=== PATIENT | female | born 1980 | race Caucasian/White ===

== ENCOUNTER 2019-10-10 00:52 | Inpatient (IN) | payer OTHER ==
[~2019-10-10] VITALS: Ht 162.6 cm; Wt 96.7 kg
[~2019-10-10 00:52] MED LIST: CODACE30 PO; CRUTCH USE; Carafate1 GM/10 ML PO; HYDACE5 PO; IBUP800 PO; META800 PO; NAPR500 PO; Protonix40 MG PO; RANI150 PO; Zofran Odt8 MG PO
[2019-10-10 01:26] LABS: BASOPHILS ABSOLUTE AUTO 0.02 K/mm3 (0.00-0.23); BASOPHILS PERCENT AUTO 0 % (0-2); EOSINOPHILS PERCENT AUTO 1 % (0-6); Hematocrit 37.2 % (33.0-51.0); Hemoglobin 12.5 g/dL (11.5-16.0); IMMATURE GRAN ABSOLUTE AUTO 0.03 K/mm3 (0.00-0.10); IMMATURE GRAN PERCENT AUTO 0 % (0-1); LYMPHOCYTES ABSOLUTE AUTO 1.16 K/mm3 (0.84-5.20); LYMPHOCYTES PERCENT AUTO 16 % (21-46); MONOCYTES ABSOLUTE AUTO 0.64 K/mm3 (0.16-1.47); MONOCYTES PERCENT AUTO 9 % (4-13); Mean Corpuscular HGB 31.6 pg (26.0-34.0); Mean Corpuscular HGB Conc 33.6 g/dL (31.5-36.5); Mean Corpuscular Volume 94 fL (80-100); Mean Platelet Volume 10.6 fL (9.1-12.4); NEUTROPHILS ABSOLUTE AUTO 5.51 K/mm3 (1.96-9.15); NEUTROPHILS PERCENT AUTO 74 % (41-73); Platelet Count 149 K/mm3 (150-400); RDW Standard Deviation 45.3 fL (35.1-46.3); Red Blood Cell Count 3.95 M/mm3 (3.80-5.20); White Blood Cell Count 7.46 K/mm3 (4.00-11.30)
[2019-10-10 01:38] LABS: Alanine Aminotransfer (ALT/SGP 96 U/L (12-78); Albumin, Blood 2.4 g/dL (3.4-5.0); Albumin/Globulin Ratio 0.5 (0.8-1.8); Alk Phos 272 U/L (50-136); Anion Gap 7 mmol/L (6-16); Aspartate Aminotrans (AST/SGOT 97 U/L (12-37); Bilirubin, Total 1.8 mg/dL (0.1-1.0); Blood Urea Nitrogen 8 mg/dL (8-24); Bun/Creatinine Ratio 11.1 (12.0-20.0); CO2, Blood 26 mmol/L (21-32); Calcium, Blood 8.6 mg/dL (8.5-10.1); Chloride, Blood 104 mmol/L (98-108); Creatinine, Blood 0.72 mg/dL (0.40-1.00); Glomerular Filtration Rate >60 (60-); Glucose, Blood 131 mg/dL (70-99); Potassium, Blood 3.7 mmol/L (3.5-5.5); Sodium, Blood 137 mmol/L (136-145); Total Protein, Blood 7.4 g/dL (6.4-8.2)
[2019-10-10 03:02] LABS: Source, Urine Clean Catch
[2019-10-10 03:04] LABS: Appearance, Urine Clear (Clear); Blood, Urine 4+ (Neg); Color, Urine Amber (P-Yellow); Glucose Qualitative, Urine Neg (Neg); Ketones, Urine 1+ (Neg); Leukocyte Esterase, Urine 2+ (Neg); Nitrite, Urine Neg (Neg); Protein, Urine 2+ (Neg); Specific Gravity, Urine 1.015 (1.003-1.022); Urobilinogen, Urine 3+ (Normal)
[2019-10-10 03:08] LABS: Bilirubin, Urine 2+ (Neg)
[2019-10-10 03:10] LABS: Bacteria Mod /hpf; Red Blood Cells, Urine 0-2 /hpf (0-2); Squamous Epithelial Cells Few /hpf (Few)
--- NOTE | 2019-10-10 18:29 | NUR ---
SHE IS SLEEPING NOW AFTER A DOSE OF PO VALIUM, BUT HAS BEEN VERY DIFFICULT TO ASSESS TODAY. SHE HAS C/O SEVERE PAIN IN HER L FLANK ALL DAY AND SOME PAIN DOWN HER L LEG. I HAVE STAYED IN TOUCH WITH T/O THE DAY. I HAVE GIVEN HER TORADOL, TRAMADOL, TYLENOL, LIDOCAINE PATCH AND VALIUM IN THAT ORDER TODAY. SHE ACTUALLY HAD 2 DOSES OF TORADOL AND TRAMADOL. SHE WAS SAYING NOTHING HELPED, EVEN THE DILAUDID IN THE E.R. SHE SAYS WAS NOT EFFECTIVE. WHEN I'M WITH HER, SHE CAN BE WRITHING, THEN SUDDENLY QUIET AND ALMOST ASLEEP. IVF'S ONGOING UNTIL THIS CURRENT BAG FINISHES. SHE IS EATING ABOUT 50%. HER URINE IS BROWN/FAHEEM. SHE IS ABLE TO WALK AROUND IN THE ROOM. VS HIGH AND FAST WHEN WRITHING IN PAIN.
[2019-10-11 00:03] LABS: Vancomycin, Trough 13.9 ug/mL (5.0-10.0)
[2019-10-11 16:12] LABS: Vancomycin, Trough 14.6 ug/mL (5.0-10.0)
--- NOTE | 2019-10-11 18:39 | NUR ---
SHIFT SUMMARY THE PATIENT SLEPT THE MAJORITY OF THE DAY, WAKING ONLY TO ALLOW STAFF TO PROVIDE NEEDED CARE. SHE HAD A FEVER OF 101.8 THIS AFTERNOON AND WAS GIVEN APAP AND IT WAS EFFECTIVE, BRINGING DOWN HER TEMP TO 98.9. SHE WILL ROUTINELY REQUEST PAIN MEDICATION WELL DIAZEPAM BUT OTHERWISE DOES NOT CALL FOR ANY STAFF ASSIST. PATIENT WAS PLACED ON CONTACT ISO FOR MRSA IN HER BLOOD. PATIENT CONTINUES TO REAT AT THISTIME. WILL CONTINUE TO MONITOR AND PROVIDE CARE NEEDED.
--- NOTE | 2019-10-11 22:48 | NUR ---
PATIENT REPORTED BACK PAIN AND TRAMADOL PO 50 MG GIVEN PER EMAR. PATIENT RESTING. CALL LIGHT IN REACH.
[2019-10-12 04:41] LABS: BASOPHILS ABSOLUTE AUTO 0.04 K/mm3 (0.00-0.23); BASOPHILS PERCENT AUTO 0 % (0-2); EOSINOPHILS PERCENT AUTO 1 % (0-6); Hematocrit 35.3 % (33.0-51.0); Hemoglobin 11.7 g/dL (11.5-16.0); IMMATURE GRAN ABSOLUTE AUTO 0.05 K/mm3 (0.00-0.10); IMMATURE GRAN PERCENT AUTO 1 % (0-1); LYMPHOCYTES ABSOLUTE AUTO 1.99 K/mm3 (0.84-5.20); LYMPHOCYTES PERCENT AUTO 20 % (21-46); MONOCYTES ABSOLUTE AUTO 0.81 K/mm3 (0.16-1.47); MONOCYTES PERCENT AUTO 8 % (4-13); Mean Corpuscular HGB 30.5 pg (26.0-34.0); Mean Corpuscular HGB Conc 33.1 g/dL (31.5-36.5); Mean Corpuscular Volume 92 fL (80-100); Mean Platelet Volume 9.8 fL (9.1-12.4); NEUTROPHILS ABSOLUTE AUTO 6.88 K/mm3 (1.96-9.15); NEUTROPHILS PERCENT AUTO 70 % (41-73); Platelet Count 232 K/mm3 (150-400); RDW Coefficient Variation 13.3 % (11.7-14.2); RDW Standard Deviation 45.1 fL (35.1-46.3); Red Blood Cell Count 3.83 M/mm3 (3.80-5.20); White Blood Cell Count 9.87 K/mm3 (4.00-11.30)
[2019-10-12 04:57] LABS: Anion Gap 8 mmol/L (6-16); Blood Urea Nitrogen 4 mg/dL (8-24); Bun/Creatinine Ratio 6.8 (12.0-20.0); CO2, Blood 23 mmol/L (21-32); Calcium, Blood 8.3 mg/dL (8.5-10.1); Chloride, Blood 107 mmol/L (98-108); Creatinine, Blood 0.59 mg/dL (0.40-1.00); Glomerular Filtration Rate >60 (60-); Glucose, Blood 113 mg/dL (70-99); Potassium, Blood 3.1 mmol/L (3.5-5.5); Sodium, Blood 138 mmol/L (136-145)
--- NOTE | 2019-10-12 04:59 | NUR ---
SHIFT SUMMARY PATIENT HAD NO ACUTE CHANGES OBSERVED. AXOX 3 AND INDEPENDENT IN ROOM. PIV REMAINS INTACT. IV ABX INFUSED. REPORTED L HIP/BACK PAIN AND TRAMADOL 50 MG GIVEN PER EMAR. BP STABLE, LOW GRADE TEMP 99.7, DENIES SOB AND N.V. CONTACT PRECAUTIONS. ABLE TO SLEEP MOST OF THE SHIFT. COOPERATIVE WITH CARE. CALL LIGHT IN REACH. BED IN LOWEST POSITION. WILL CONTINUE TO MONITOR UNTIL DAY SHIFT NURSE ASSUMES CARE.
--- NOTE | 2019-10-12 18:31 | NUR ---
SHIFT SUMMARY PT AWAKE AT START OF SHIFT, TALKING ON CELL PHONE. PT ADMITTED FOR SEPTIC EMBOLISM, REPORTING PAIN IN HER BACK A RESULT. PT IN CONTACT ISO FOR MRSA, RECEIVING IV ABX. 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 DR SEGURA HERE TO SEE PT EARLIER IN THE DAY, EXPLAINED CAUSE AND EFFECT OF BACTERIA IN THE BLOOD AND ESPECIALLY THE RISK OF IV DRUG USE. PT VERBALIZED UNDERSTANDING. PT WILL NEED SEVERAL WEEKS OF OUTPT IV ABX. SS CONSULT ORDERED TO DETERMINE PLAN. DR RING CONSULTED TO I&D BOILS ON HANDS AND WRISTS. DR RING TO TONIGHT; CHRG EDUARD FUENTES ASSISTED. WOUNDS CLEANSED AND WRAPPED WITH KERLEX. PT TOLERATED PROCEDURE WELL. PT DEVELOPED ELEVATED TEMP THIS AFTERNOON; SEE CHART. ICE BAGS PLACED TO AXILLARY AND NECK. TYLENOL GIVEN PER EMAR. HEAT DECREASED AND BLANKETS REMOVED. TEMP SLOWLY DECREASED, SEE CHART, PT WAS COMPLIANT WITH TX. PT REPORTED FEELING BETTER TONIGHT. VISITORS TO PRESENTLY. PT WATCHING TV. CALL LT IN REACH.
--- NOTE | 2019-10-12 23:56 | NUR ---
PATIENT REPORTS LOCKETT AND BACK PAIN. TEMP OF 100.8. TYLENOL AND TRAMADOL GIVEN PER EMAR. WILL REASSESS. CALL LIGHT IN REACH.
--- NOTE | 2019-10-13 00:46 | NUR ---
TEMP 98.2 DOWN FROM 100.8. WILL CONTINUE TO MONITOR.
--- NOTE | 2019-10-13 04:19 | NUR ---
POSITIVE BLOOD CULTURES. GRAM POSITIVE CLUSTERS IN COCCI. PATIENT RECEIVING IV VANCO. PHARMACY DANNY REPORTS OKAY WITH VANCO FOR COVERAGE.
--- NOTE | 2019-10-13 04:32 | NUR ---
POSITIVE BLOOD CULTURES. HOSPITALIST DR TANG NOTIFIED AND APPROVED IV VANCO THAT PATIENT IS ON.
--- NOTE | 2019-10-13 04:38 | NUR ---
SHIFT SUMMARY PATIENT FEBRILE AT START OF SHIFT AT 100.8 DOWN FROM 102.8. LAST CHECK IS 98.3 AFTER ADDITIONAL TYLENOL. POSITIVE BLOOD CULTURES: GRAM POSITIVE COCCI IN CLUSTERS. HOSPITALIST DR IVAN NOTIFIED AND PHARMACY DANNY BOTH APPROVING IV VANCO PATIENT IS ON. REPORTED BACK PAIN X ONE AND TRAMADOL GIVEN PER EMAR. BILATERAL WRIST DRESSINGS. ONE DRESSING CHANGED THIS SHIFT AND THE OTHER C/D/I. BP WNL. DENIES SOB AND N/V. PIV REMAINS INTACT. IV VANCO INFUSED. CONTACT PRECAUTIONS. VISITOR THIS SHIFT. PATIENT MOSTLY SLEPT OR USED HER PHONE APPS. REQUEST VALIUM X ONE AND RECEIVED PER EMAR. CALL LIGHT IN REACH. BED IN LOWEST POSITION. WILL CONTINUE TO MONITOR UNTIL DAY SHIFT NURSE ASSUMES CARE.
[2019-10-13 04:45] LABS: BASOPHILS ABSOLUTE AUTO 0.05 K/mm3 (0.00-0.23); BASOPHILS PERCENT AUTO 1 % (0-2); EOSINOPHILS ABSOLUTE AUTO 0.19 K/mm3 (0.00-0.68); EOSINOPHILS PERCENT AUTO 2 % (0-6); Hematocrit 37.8 % (33.0-51.0); Hemoglobin 12.6 g/dL (11.5-16.0); IMMATURE GRAN ABSOLUTE AUTO 0.06 K/mm3 (0.00-0.10); IMMATURE GRAN PERCENT AUTO 1 % (0-1); LYMPHOCYTES ABSOLUTE AUTO 2.07 K/mm3 (0.84-5.20); LYMPHOCYTES PERCENT AUTO 21 % (21-46); MONOCYTES ABSOLUTE AUTO 0.76 K/mm3 (0.16-1.47); MONOCYTES PERCENT AUTO 8 % (4-13); Mean Corpuscular HGB 30.9 pg (26.0-34.0); Mean Corpuscular HGB Conc 33.3 g/dL (31.5-36.5); Mean Corpuscular Volume 93 fL (80-100); Mean Platelet Volume 9.8 fL (9.1-12.4); NEUTROPHILS ABSOLUTE AUTO 6.98 K/mm3 (1.96-9.15); NEUTROPHILS PERCENT AUTO 69 % (41-73); Platelet Count 289 K/mm3 (150-400); RDW Coefficient Variation 13.5 % (11.7-14.2); RDW Standard Deviation 46.5 fL (35.1-46.3); Red Blood Cell Count 4.08 M/mm3 (3.80-5.20); White Blood Cell Count 10.11 K/mm3 (4.00-11.30)
[2019-10-13 04:59] LABS: Anion Gap 9 mmol/L (6-16); Blood Urea Nitrogen 6 mg/dL (8-24); CO2, Blood 23 mmol/L (21-32); Calcium, Blood 8.4 mg/dL (8.5-10.1); Chloride, Blood 105 mmol/L (98-108); Glomerular Filtration Rate >60 (60-); Glucose, Blood 124 mg/dL (70-99); Potassium, Blood 3.8 mmol/L (3.5-5.5); Sodium, Blood 137 mmol/L (136-145)
[2019-10-13 06:08] LABS: HBSAG SCREEN Negative (Negative); HEP B CORE AB, TOT Negative (Negative); HEP C VIRUS AB <0.1 (0.0-0.9); HIV SCREEN 4TH GENERATION WRFX Non Reactive (Non Reactive)
[2019-10-13 15:40] LABS: Vancomycin, Trough 24.6 ug/mL (5.0-10.0)
--- NOTE | 2019-10-13 17:59 | NUR ---
SHIFT SUMMARY PT RESTED QUIETLY MOST OF THE DAY. UP INDEPENDENTLY IN RM TO BTHRM. REPORTED THAT ONE OF THE VISITORS TO HER RM LAST NIGHT, STOLE HER PURSE AND CELL PHONE DURING NIGHT. SECURITY NOTIFIED THIS EVENING, BUT UNABLE TO SEE PERSON OF INTREST WITH MISSING ITEMS. DRSG'S TO HANDS AND WRIST REMAINED DRY. DR RING IN TO SEE PT AND CHECK BOIL SITES ON HANDS AND WRIST. REDNESS AND SWELLING IMPROVED SINCE I&D YESTERDAY. PT UP TO SHOWER INDEPENDENTLY. DECLINED TO HAVE KERLEX REPLACED TO HANDS AND WRIST WOUND SITES WERE NOT DRAINING. LAB CALLED TO REPORT 2ND SET OF BCX'S ARE ALSO POSITIVE FOR GRAM POSITIVE COCCI IN CLUSTERS; SAME FIRST SET. DR WALLER NOTIFIED BY CHRG RN. VANCO TROUGH CAME BACK HIGH TODAY; 1600 VANCO HELD BY PHARMACY. PT REPORTED PAIN TO BACK IMPROVED AGAIN TODAY, HOWEVER PT HAD ONE EPISODE OF PAIN IN BACK THAT RADIATED UP TO NECK. PT MEDICATED WITH TORADOL, WHICH PT REPORTED EFFECTIVE. CALL LT IN REACH.
--- NOTE | 2019-10-13 21:10 | NUR ---
PATIENT LAYING IN BED IN NO APPARENT DISTRESS. PT STATES PAIN IN HER BACK/NECK 8/10 PAIN MED GIVEN PER EMAR. SCATTERED ABCESSES ACROSS HER FOREARMS, RED SWOLLEN WELTS. PAIN MEDS GIVEN PER EMAR. IV WAS FLUSHED AND FOUND TO BE LEAKING AND D/C'd. NEW IV STARTED ON ROBY. PT AO4, INDEPENDENT IN THE ROOM. BED LOW AND LOCKED. CALL CAMPOVERDE WITHIN REACH
--- NOTE | 2019-10-14 06:45 | NUR ---
PT RECEIVED A NEW IV THIS SHIFT IN HER ROBY. SHE RECEIVED PAIN MEDS PER EMAR. AND VALIUM ONCE AT BEDTIME. SHE HAD COMPANY ARRIVE THIS MORNING AND WAS ASKED NOT TO CLOSE HER DOOR WHILE SHE HAS COMPANY. SHE HAS BEEN PLEASANT AND COOPERATIVE WITH CARE. SHE CALLS APPROPRIATELY AND CAN MAKE HER NEEDS KNOWN.
--- NOTE | 2019-10-14 18:05 | NUR ---
SHIFT SUMMARY PT STABLE NO ACUTE CHANGES THIS SHIF. PT MEDICATED X1 FOR PAIN. PT HAD ID OF MULTIPLE BOILS X2 DAYS AGO. PT EXPRESSING DISCHARGE FROM SITES AND EDUCATED PT ON NOT INTRODUCING MORE BACTERIA WITH UNCLEAN HANDS. PT DECLING DRESSINGS AT THIS TIME. PT AMBULATES INDEPENDENTLY TO RESTROOM AND OUTSIDE. PT HAS CALL LIGHT WITH IN REACH. WILL COUNTINUE TO MONITOR AND REPORT TO ON COMING SHIFT.
--- NOTE | 2019-10-15 05:02 | NUR ---
SHIFT SUMMARY AOX4. HAD TEMP OF 101.0 AROUND 0200 THIS AM, MEDICATED W/TYLENOL & TEMP DECREASED TO 99.6 ORALLY. PT REPORTED 6/10 LOWER BACK PAIN & HEADACHE @SAME TIME OF FEVER. MEDICATED W/ULTRAM & VALIUM PER ORDERS & PAIN LEVEL DECREASED TO 4/10. DENIES N/V, DYSPNEA. ABCESSES & SURGICAL I&D SITES ON BILAT HANDS/WRISTS ARE OPEN TO AIR, REDDENED & W/O ANY DRAINAGE THIS SHIFT. CALL LIGHT IN REACH & BED IN LOWEST POSITION. WCTM.
[2019-10-15 07:47] LABS: Vancomycin, Trough 30.2 ug/mL (5.0-10.0)
--- NOTE | 2019-10-15 18:08 | NUR ---
SHIFT SUMMARY PT HAD NO ACUTE CHANGES THIS SHIFT. PT HAD AN UNCONTROLED EPISODE OF PAIN, PT CRYING UNCONTROLABLE AND TOSSING IN BED, RELIEVED WITH PAIN MEDICATION. MEDICATED X2 FOR PAIN. PT HAS POS BL CX THIS SHIFT DR. PENA NOTIFIED. PHARMACY HELD VANCOMYCIN BECAUSE OF VANCO TROUGH BEING ELEVATED. PT HAD INCREASED PULSE RATE AND IV HUB WAS MISSING, ORDER PLACED FOR UTOX PER DR. PENA. CALL LIGHT WITH IN REACH WILL COUNTINUE TO MONITOR AND REPORT TO ONCOMING SHIFT.
--- NOTE | 2019-10-15 18:29 | NUR ---
PROVIDER NOTIFY PT HAD AN INCREASE PULSE OF 125 AND TEMP. IV HUB MISSING. NEW ORDERS PLACED.
[2019-10-15 21:00] LABS: Vancomycin, Random 7.6 ug/mL
[2019-10-16 05:19] LABS: BASOPHILS ABSOLUTE AUTO 0.05 K/mm3 (0.00-0.23); BASOPHILS PERCENT AUTO 1 % (0-2); EOSINOPHILS ABSOLUTE AUTO 0.39 K/mm3 (0.00-0.68); EOSINOPHILS PERCENT AUTO 4 % (0-6); Hematocrit 35.1 % (33.0-51.0); Hemoglobin 11.2 g/dL (11.5-16.0); IMMATURE GRAN ABSOLUTE AUTO 0.05 K/mm3 (0.00-0.10); IMMATURE GRAN PERCENT AUTO 1 % (0-1); LYMPHOCYTES ABSOLUTE AUTO 1.86 K/mm3 (0.84-5.20); LYMPHOCYTES PERCENT AUTO 21 % (21-46); MONOCYTES ABSOLUTE AUTO 0.68 K/mm3 (0.16-1.47); MONOCYTES PERCENT AUTO 8 % (4-13); Mean Corpuscular HGB 30.5 pg (26.0-34.0); Mean Corpuscular HGB Conc 31.9 g/dL (31.5-36.5); Mean Platelet Volume 9.5 fL (9.1-12.4); NEUTROPHILS PERCENT AUTO 66 % (41-73); Platelet Count 361 K/mm3 (150-400); RDW Coefficient Variation 13.4 % (11.7-14.2); RDW Standard Deviation 47.5 fL (35.1-46.3); Red Blood Cell Count 3.67 M/mm3 (3.80-5.20); White Blood Cell Count 8.93 K/mm3 (4.00-11.30)
[2019-10-16 05:22] LABS: Mean Corpuscular Volume 96 fL (80-100)
[2019-10-16 05:42] LABS: Anion Gap 5 mmol/L (6-16); Blood Urea Nitrogen 8 mg/dL (8-24); Bun/Creatinine Ratio 13.6 (12.0-20.0); CO2, Blood 27 mmol/L (21-32); Calcium, Blood 8.8 mg/dL (8.5-10.1); Chloride, Blood 105 mmol/L (98-108); Creatinine, Blood 0.59 mg/dL (0.40-1.00); Glomerular Filtration Rate >60 (60-); Glucose, Blood 100 mg/dL (70-99); Potassium, Blood 4.1 mmol/L (3.5-5.5); Sodium, Blood 137 mmol/L (136-145)
--- NOTE | 2019-10-16 06:46 | NUR ---
SUMMARY: A/OX4, CALLS APPROPRIATELY AND INDEPENDENT IN ROOM. PT WAS MEDICATED W/TYLENOL X2 DOSES FOR C/O LOCKETT AND LOW GRAGE TEMP 100.3. SHE ALSO RECIEVED ULTRAM X1 FOR TOLERABLE CONTROL OF CHRONIC LOWER BACK PAIN. VANCO GIVEN THIS SHIFT THEN SL. URINE TOX SPECIMEN STILL PENDING. HEALING SHIVA TO HANDS HAVE NO DRAINAGE AND SCABS ARE INTACT. NO ACUTE CHANGES, VSS/AFEBRILE. WCTM AND REPORT TO DAY RN.
[2019-10-16 07:48] LABS: U Amphetamine Screen Not Detected; U Barbituate Screen Not Detected; U Benzodiazapine Screen DETECTED; U Buprenorphine Screen Not Detected; U Cannabinoids Screen Not Detected; U Cocaine Screen Not Detected; U Methadone Screen Not Detected; U Methamphetamine Screen Not Detected; U Opiates Screen DETECTED; U Oxycodone Screen Not Detected; U Phencyclidine Screen Not Detected; U Propoxyphene Screen Not Detected
--- NOTE | 2019-10-16 16:00 | NUR ---
SHIFT SUMMARY: PT IS A/O X 4 WITH NO C/O PAIN. BOLIS TO HANDS ARE CLOSED AND APPEAR TO BE HEALING WELL. IV ABO INFUSED WITH NO ADVERSE REACTIONS OBSERVED. PT REMAINS UP AD SUSAN. PROCEDURE NURSE SUCCESSFULLY PLACED A POWER GLIDE THIS AFTERNOON IN THE LUE AND IT IS FLUSHING WELL. PT IS ABLE TO MAKE HER NEEDS KNOWN AND CALLS FOR HELP WHEN NEEDED. SHE IS RESTING IN HER ROOM.
[2019-10-17 01:05] LABS: Vancomycin, Trough 13.9 ug/mL (5.0-10.0)
--- NOTE | 2019-10-17 04:56 | NUR ---
SUMMARY: A/OX4, INDEPENDENT AND CALLS APPROPRIATELY. SHE HAD TYLENOL X1 FOR RELIEF OF LOCKETT AND NO FEVER OBSERVED THIS SHIFT. IV VANCO RECIEVED THEN SL. SHIVA TO HANDS ARE HEALING, SCABBED AND C/D/I. NO ACUTE CHANGES. VSS AND AFEBRILE. WCTM AND REPORT TO DAY RN.
--- NOTE | 2019-10-17 19:24 | NUR ---
SHIFT SUMMARY PT INDEPENDENT IN ROOM. MEDICATED TWICE FOR PAIN TO L BACK THAT SHOOTS DOWN HER LEG. HAS NOT GONE OUT TO SMOKE TODAY. REPORTS SHE HAS ONLY GONE OUT TWICE SINCE ADMIT TO SMOKE. STATES PAIN IN HER BACK IS BETTER SINCE SHE FIRST ARRIVED TO HOSPITAL. HANDS WITH NO SWELLING AND ONLY ONE OF THE RESOLVING BOILDS APPEAR ELEVATED AND PINK.
--- NOTE | 2019-10-18 06:08 | NUR ---
SHIFT SUMMARY A/O, ABLE TO MAKE NEEDS KNOWN. COOPERATIVE WITH CARE. CALLS AND ANSWERS QUESTIONS APPROPRIATELY. NO ACUTE CHANGES NOTED OVERNIGHT. POWERGLIDE TO MELY; INFUSED IV ABX WITHOUT COMPLICATION. UP INDPENDENTLY IN ROOM AND HALLWAY; WELL OUTSIDE. VISITOR OVERNIGHT. VSS/AFEBRILE. BED IN LOWEST POSITION. CALL LIGHT AND BELONGINGS WITHIN REACH. WCTM. REPORT TO ONCOMING RN.
--- NOTE | 2019-10-18 18:38 | NUR ---
SHIFT SUMMARY PT INDEPENDENT IN ROOM. DOG HERE TO VISIT FOR PART OF DAY. VISITORS IN AND OUT OF ROOM. MEDICATED FOR SPASMS ONCE AND PAIN ONCE. REPORTS A DISCOMFORT IN LLQ. NO FEVERS. SHOWER TAKEN AND TOLERATED WITH NO PROBLEM.
[2019-10-19 01:57] LABS: Creatinine, Blood 0.73 mg/dL (0.40-1.00); Vancomycin, Trough 16.6 ug/mL (5.0-10.0)
--- NOTE | 2019-10-19 07:29 | NUR ---
SHIFT SUMMARY A/O, ABLE TO MAKE NEEDS KNOWN. COOPERATIVE WITH CARE. CALLS AND ANSWERS QUESTIONS APPRORIATELY. C/O PAIN/DISCOMFORT; MEDICATED PER EMAR. APPEARED TO REST MUCH OF NIGHT. NO ACUTE CHANGES NOTED OVERNIGHT. CHANGED POWERGLIDE DRESSING AND CAP. VSS/AFEBRILE. CONTINUED TO MONITOR OVERNIGHT. INDEPENDENT IN THE ROOM. BED IN LOWEST POSITION. REPORT GIVEN TO ONCOMING RN.
--- NOTE | 2019-10-19 12:31 | NUR ---
CALL TO DR PENA [phone] PT CALLED W/ C/O L RIB PAIN 07/20; PAIN MEDS ADMIN, DR SEGURA SAW PT STATED HE WAS PLACING ORDERS FOR CXR, CALL PLACED TO DR PENA @ [phone].
--- NOTE | 2019-10-19 17:17 | NUR ---
SHIFT SUMMARY PT HAS HAD NO ACUTE CHANGES THIS SHIFT, PT WAS OUT OF ROOM FOR 1.5 HOURS THIS AM, WHEN PT RETURNED THIS RN EDUCATED PT ABOUT AMA RULES, PT RESPONDED WITH "I DIDN'T KNOW MY FRIEND WAS GOING TO PICK ME UP FOR SO LONG" THEN STATED "OH BUT WE DIDN'T LEAVE THE PROPERTY, JUST DROVE AROUND THE PARKING LOT", CHARGE & NOTIFIED. AFTER RETURNING PT HAD VISITOR FOR ANOTHER HOUR THEN C/O SUDDEN ONSET L LUNG PAIN. MEDICATED PER DEC, DR SEGURA CAME TO SEE PT @ SAME TIME @ ORDERED CXRAY, DR PENA NOTIFIED. WHEN IMAGING CAME TO PICK PT UP PT COMPLAINED THAT WAS NOT LISTENING TO HER AND DIDN'T CARE. DID COME TO ROOM TO SEE PT LATER, NEW ORDERS REC & ENTERED. STATED PT WANTED TO COMPLAIN TO SOMEONE "HIGHER UP" ABOUT , CHARGE & DAPHNEY NOTIFIED. PT IS BEDRESTING WATCHING MOVIES ON COMP AT THIS TIME, STATES PAIN IS CONTROLLED, WILL CONT TO MONITOR UNTIL REPORT GIVEN TO NOC RN.
--- NOTE | 2019-10-20 04:30 | NUR ---
SHIFT SUMMARY: PT IS ALERT AND ORIENTED. PT IS CALM AND COOPERATIVE WITH CARE. PT CALLS APPROPRIATELY. PT IS INDEPENDENT IN THE ROOM. PT REPORTS PAIN ON ONE OCCASION, GAVE PRN TRAMADOL. PT DENIES NAUSEA, VOMITING, AND SOB. FRIEND SLEPT IN THE ROOM OVERNIGHT. NO ACUTE CHANGES OR COMPLICATIONS THIS SHIFT. BED IN LOW POSITION, CALL LIGHT WITHIN REACH. WILL REPORT TO DAY NURSE.
--- NOTE | 2019-10-20 10:21 | NUR ---
COLCHICINE PATIENT NO LONGER HAS PLEURITIC TYPE CHEST PAIN. PER DR. PENA, MED IS TO BE D/C'D.
--- NOTE | 2019-10-20 13:47 | NUR ---
Antibiotic treatment Pt requesting to be unhooked from IV Vanco. At this time, abx has been running for approximately 15 minutes. This RN informed patient that treatment cannot be interferred with until abx is complete which is in 1.25 hours. Pt adamant about visiting with "Friend" from work who is taking a break to see her. Pt stated "Then I will just unhook myself." associate pastor Toi notified, pt notified that IV will be removed and patient won't be able to come back if pt unhooks self from IV. Patient given the option to wait until completion of abx or have freind come up to visit. Patient is aware and unhappy about this.
--- NOTE | 2019-10-20 16:41 | NUR ---
Shift Summary No acute events today. Patient slept most of the day and got up to the bathroom. This afternoon, pt did go out for 1 hour. Denies pain, nausea, or any needs. Have not had to medicate for anything except scheduled meds. Continues to be tachycardic. Will continue to monitor.
--- NOTE | 2019-10-21 04:26 | NUR ---
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
[2019-10-21 12:36] LABS: Vancomycin, Trough 18.6 ug/mL (5.0-10.0)
--- NOTE | 2019-10-21 18:18 | NUR ---
PT AOX4 AND COOPERATIVE OF CARE. PT TOOK A LOT OF NAPS TODAY AND DID GO OUTSIDE FOR A HALF HR ON HER OWN. PT HAS BEEN COOPERATIVE AND HAS STAYED PUT TO RECIEVE HER IV ANTIBIOTICS. PT TOOK SHOWER TODAY AND IS RESTING IN BED AT THIS TIME. PT CALLS APPROPRIATELY AND DENIED ANY NEED FOR PAIN OR ANXIETY MEDS TODAY. WILL CONTINUE TO MONITOR.
[2019-10-22 05:48] LABS: Hemoglobin 10.4 g/dL (11.5-16.0); Mean Corpuscular HGB Conc 31.5 g/dL (31.5-36.5); Mean Corpuscular Volume 99 fL (80-100); Mean Platelet Volume 8.9 fL (9.1-12.4); Platelet Count 533 K/mm3 (150-400); RDW Coefficient Variation 13.4 % (11.7-14.2); RDW Standard Deviation 47.1 fL (35.1-46.3); Red Blood Cell Count 3.35 M/mm3 (3.80-5.20); White Blood Cell Count 7.02 K/mm3 (4.00-11.30)
--- NOTE | 2019-10-22 05:59 | NUR ---
SHIFT SUMMARY: 34 Y/O OBESE FEMALE HAD RESTLESS NIGHT AT TIMES WITH PATIENT APPEARING TO BE SLIGHTLY CONFUSED, HOWEVER; SHE QUICKLY AWAKENS FROM THIS PARTICULAR BEHAVIOR WHEN THIS NURSE TALKS IN LOUD, FIRM VOICE; LUNG SOUNDS ARE DIMINISHED THROUGHOUT WITH NO COUGH; EKG PERFORMED LAST NOC REFLECTED NSR; PT REQUIRED FREQUENT REMINDERS TO LEAVE OXYGEN ON SHE DESATURATES QUICKLY BELOW 90% WHEN NOT WORN AND MAITAINS 94% WHEN KEPT ON; BED ALARM APPLIED, BED LOW POSITION WITH CALL LIGHT AT SIDE; DENIES NAUSEA; PT WAS NOTED TO INITIALLY AT BEGINNING OF SHIFT REQUESTING LARGE QUANTITIES OF COCA--COLA TO DRINK WITH PATIENT ENCOURAGED TO DRINK CAFFEINE FREE SALO MIST WITH PATIENT IN AGREEMENT.
[2019-10-22 06:04] LABS: Anion Gap 7 mmol/L (6-16); Blood Urea Nitrogen 11 mg/dL (8-24); Bun/Creatinine Ratio 15.9 (12.0-20.0); CO2, Blood 26 mmol/L (21-32); Calcium, Blood 8.7 mg/dL (8.5-10.1); Chloride, Blood 105 mmol/L (98-108); Creatinine, Blood 0.69 mg/dL (0.40-1.00); Glomerular Filtration Rate >60 (60-); Glucose, Blood 145 mg/dL (70-99); Phosphorus, Blood 4.5 mg/dL (2.5-4.9); Potassium, Blood 3.6 mmol/L (3.5-5.5); Sodium, Blood 138 mmol/L (136-145)
--- NOTE | 2019-10-22 06:06 | NUR ---
SHIFT SUMMARY: 39 Y/O OBESE FEMALE RESTED COMFORTABLY IN BED; NO ISSUES ENTIRE SHIFT (PATIENT STAYED ON UNIT AND DID NOT GO OUTSIDE); PT C/O GENERALIZED BACK PAIN RATED 8/10 WITH MOTRIN 800MG AND ULTRAM 50MG PO GIVEN X 1 WITH RELIEF FELT; DENIES NAUSEA; ALERT AND ORIENTED X 4; BED LOW POSITION WITH CALL LIGHT AT SIDE.
--- NOTE | 2019-10-22 12:18 | NUR ---
PT AOX4 AND COOPERATIVE OF CARE. PT DENIES ANY PAIN AT THIS TIME. PT INDEPENDENT IN ROOM. CARE TO BE TRANSFERED TO EDUARD LERMA.
--- NOTE | 2019-10-22 15:40 | NUR ---
EKG COMPLETE BECAUSE PATIENT WAS TECHYCARDIC. HR REGULAR, RATE 140. EKG SHOWS SINUS TACH 140. ATTEMPTED TO NOTIFY DR KRUEGER WHO WAS UNREACHABLE AT THIS TIME. PATIENT OTHER VSS AT THIS TIME
--- NOTE | 2019-10-22 16:03 | NUR ---
DR KRUEGER NOTIFIED OF EKG RESULTS. ORDERS NOTED
--- NOTE | 2019-10-22 16:39 | NUR ---
STAT EKG COMPLETE. LABS DRAWN. AWAITING URINE SAMPLE FOR U TOX. PATIENT APPEARS MORE CALM. BREATHING MORE REGULAR. HR CONTINUES TACHY, REGULAR AT 135
[2019-10-22 16:50] LABS: BASOPHILS ABSOLUTE AUTO 0.07 K/mm3 (0.00-0.23); BASOPHILS PERCENT AUTO 1 % (0-2); EOSINOPHILS ABSOLUTE AUTO 0.22 K/mm3 (0.00-0.68); EOSINOPHILS PERCENT AUTO 3 % (0-6); Hematocrit 34.7 % (33.0-51.0); Hemoglobin 11.1 g/dL (11.5-16.0); IMMATURE GRAN ABSOLUTE AUTO 0.03 K/mm3 (0.00-0.10); IMMATURE GRAN PERCENT AUTO 0 % (0-1); LYMPHOCYTES ABSOLUTE AUTO 2.44 K/mm3 (0.84-5.20); LYMPHOCYTES PERCENT AUTO 32 % (21-46); MONOCYTES ABSOLUTE AUTO 0.73 K/mm3 (0.16-1.47); MONOCYTES PERCENT AUTO 9 % (4-13); Mean Corpuscular Volume 97 fL (80-100); Mean Platelet Volume 8.9 fL (9.1-12.4); NEUTROPHILS ABSOLUTE AUTO 4.25 K/mm3 (1.96-9.15); NEUTROPHILS PERCENT AUTO 55 % (41-73); Platelet Count 596 K/mm3 (150-400); RDW Coefficient Variation 13.2 % (11.7-14.2); RDW Standard Deviation 46.8 fL (35.1-46.3); Red Blood Cell Count 3.58 M/mm3 (3.80-5.20); White Blood Cell Count 7.74 K/mm3 (4.00-11.30)
--- NOTE | 2019-10-22 17:16 | NUR ---
LAB RESULTS AND XRAY RESULTS REVIEWED WITH DR KRUEGER. TELE TO BE PLACED. NO OTHER NEW ORDERS.
--- NOTE | 2019-10-22 17:33 | NUR ---
PT REPORTED CHEST PAIN TODAY WHILE THIS ELECTRICAL ENGINEERING TECHNOLOGIST WAS OUT. EDUARD FONSECA COVERED AND REPORTED ISSUE TO DR KRUEGER. IMAGES WERE TAKEN AND MEDICAITONS ADDED TO EMAR TO TREAT PAIN. CHEST PAIN HAS SINCE RESOLVED AND PT HAS BEEN RESTING IN BED. PT AT THE SAME TIME HAD BEEN EXPERIENCING INCREASED HR AND DR KRUEGER HAS ORDERED TELEMETRY TO MONITOR. WILL CONTINUE TO MONITOR PT.
--- NOTE | 2019-10-22 20:17 | NUR ---
PT LAYING BED DIAPHRETIC; VERY QUIET AND NOT LOOKING NURSE IN EYE; PT DENIES USING ANY STREET DRUGS WHILE OUTSIDE EARLIER TO DAY AND STATED, "I ONLY SMOKED A CIGARETTE"; VITAL SIGNS STABLE.
[2019-10-22 21:40] LABS: U Amphetamine Screen Not Detected; U Barbituate Screen Not Detected; U Benzodiazapine Screen DETECTED; U Buprenorphine Screen Not Detected; U Cannabinoids Screen Not Detected; U Cocaine Screen Not Detected; U Methadone Screen Not Detected; U Methamphetamine Screen Not Detected; U Opiates Screen DETECTED; U Oxycodone Screen Not Detected; U Phencyclidine Screen Not Detected; U Propoxyphene Screen Not Detected
--- NOTE | 2019-10-23 04:34 | NUR ---
SHIFT SUMMARY: 39 Y/O OBESE FEMALE RESTED QUIETLY ALL SHIFT AND ONLY AWAKENED FOR VITAL SIGNS; PT HAD EPISODES DIAPHRESIS BEGINNING OF SHIFT WHICH RESOLVED AFTER MIDNIGHT; PT HAD VERY MINIMAL CONVERSATIONS WITH STAFF; VITAL SIGNS STABLE; TELEMETRY REFLECTS SINUS TACHYCARDIA WITH HEART RATE 100 PER OBDULIA--FOOD SERVICE HELPER; UA SENT EARLIER IN SHIFT FOR TOXICOLOGY; BED LOW POSITION WITH CALL LIGHT AT SIDE.
[2019-10-23 08:00] LABS: BASOPHILS ABSOLUTE AUTO 0.07 K/mm3 (0.00-0.23); BASOPHILS PERCENT AUTO 1 % (0-2); EOSINOPHILS ABSOLUTE AUTO 0.15 K/mm3 (0.00-0.68); EOSINOPHILS PERCENT AUTO 2 % (0-6); Hematocrit 33.5 % (33.0-51.0); IMMATURE GRAN ABSOLUTE AUTO 0.01 K/mm3 (0.00-0.10); IMMATURE GRAN PERCENT AUTO 0 % (0-1); LYMPHOCYTES ABSOLUTE AUTO 1.72 K/mm3 (0.84-5.20); LYMPHOCYTES PERCENT AUTO 26 % (21-46); MONOCYTES ABSOLUTE AUTO 0.54 K/mm3 (0.16-1.47); MONOCYTES PERCENT AUTO 8 % (4-13); Mean Corpuscular HGB 31.2 pg (26.0-34.0); Mean Corpuscular HGB Conc 32.8 g/dL (31.5-36.5); Mean Corpuscular Volume 95 fL (80-100); Mean Platelet Volume 8.9 fL (9.1-12.4); NEUTROPHILS ABSOLUTE AUTO 4.05 K/mm3 (1.96-9.15); NEUTROPHILS PERCENT AUTO 62 % (41-73); Platelet Count 549 K/mm3 (150-400); RDW Coefficient Variation 13.1 % (11.7-14.2); RDW Standard Deviation 44.6 fL (35.1-46.3); Red Blood Cell Count 3.53 M/mm3 (3.80-5.20); White Blood Cell Count 6.54 K/mm3 (4.00-11.30)
[2019-10-23 08:19] LABS: Anion Gap 6 mmol/L (6-16); Blood Urea Nitrogen 9 mg/dL (8-24); Bun/Creatinine Ratio 14.7 (12.0-20.0); CO2, Blood 24 mmol/L (21-32); Calcium, Blood 8.8 mg/dL (8.5-10.1); Chloride, Blood 109 mmol/L (98-108); Creatinine, Blood 0.61 mg/dL (0.40-1.00); Glomerular Filtration Rate >60 (60-); Glucose, Blood 118 mg/dL (70-99); Phosphorus, Blood 2.1 mg/dL (2.5-4.9); Potassium, Blood 3.8 mmol/L (3.5-5.5); Sodium, Blood 139 mmol/L (136-145)
--- NOTE | 2019-10-23 14:28 | NUR ---
Talked with Leilani about her positive screen for opiates and that she will no longer be allowed visitors or to leave the 3rd floor and if she chooses to do those things she will be considered AMA. She agreed without hesitation at this time.
--- NOTE | 2019-10-23 16:08 | NUR ---
TAMPER TAPE DISCUSSING WITH PT THE USE OF TAMPER TAPE. PT RETURNED TO FLOOR WITH TAMPER TAPE ALTERED. PT REFUSED TAMPERING WITH IV LINE WHILE OFF FLOOR. PT BECAME UPSET AND THIS NURSE EXPLAINED TO PATIENT THAT SHE IS ENDANGERING HER SELF IF SHE ACCESSES LINE. PT REQUESTED CHARGE NURSE GINA MAYO TO REPORT TO PT ROOM. PT ADMITTED TO USING HERION WHILE IN THE HOSPITAL, PT STATES "I ONLY SUCKED ON THE COTTON, THAT I FOUND IN MY SUITE CASE. CLINICAL COORDINATER AND SECURITY IMPLEMENTED A SAFETY PLAN FOR PT TO STAY ON FLOOR AND HAVE NO VISITORS DUE TO POSITIVE UTOX.
--- NOTE | 2019-10-23 17:16 | NUR ---
SHIFT SUMMARY NO ACUTE CHANGES THIS SHIFT. PT HAS BEEN MEDICATED X1 FOR PAIN DURING THIS SHIFT. PT HAS A POWER GLIDE IN THE RUFA, TAMPER TAPE OVER BOTH PORTS. PT REPORTS USING HERION ON 10/21/19, SAFETY PLAN IN PLACE PER CLINICAL CORDINATOR AND SECURITY, PT IS TO STAY ON UNIT AND HAVE NO VISITORS. PT IS INDEPENDENT IN ROOM WITH HER CALL LIGHT WITH IN REACH WILL COUNINUE TO MONITOR AND REPORT TO ON COMING JEAN RN.
--- NOTE | 2019-10-23 18:38 | NUR ---
PT TRANSFER PT MOVED TO ROOM 342, WILL GIVE REPORT TO JEAN CHAPA
--- NOTE | 2019-10-24 06:01 | NUR ---
SHIFT SUMMARY AOX4. VSS. TELE RUNNING SINUS TACH HR 105. PT DENIES N/V OR DYSPNEA. REPORTS 7/10 BACK PAIN, MEDICATED 1X W/ULTRAM, 1X W/SCHEDULED IBPROPHEN & 1X W/VALIUM, PAIN DECREASED TO 5/10. PT WAS TEARFUL & ANXIOUS LAST NIGHT DURING ASSESSMENT & STATED SHE DID NOT REMOVE THE TAMPER TAPE FROM HER POWERGLIDE, THAT PART OF TAPE CAME OFF WHEN SHE REMOVED HER ROBE, I APPLIED NEW TAPE. WE DISCUSSED HER HX OF HEROIN USE & PT ADMITTED SHE USED ON Wednesday10/21/19 WHILE BEING @[facility] HOS[facility], STATED SHE HAD FOUND A PEICE OF COTTON IN HER LUGGAGE WHICH HAD RESIDUAL HEROIN & SHE ATE IT. DENIES HAVING ANY FURTHER DRUGS OR RESIDUAL DRUGS W/HER. STATES SHE WANTS HELP TO STAY OFF DRUGS & REPORTS BEING 18 MONTHS CLEAN BEFORE RELAPSING BECAUSE OF A RETORT COOLER RELATIONSHIP BREAK UP. STATES SHE FEELS LIKE A DISAPOINTMENT TO HER FAMILY & WISHES SHE COULD CONTINUE PRACTICING LAW BUT HER ADDICTION GETS IN THE WAY OF DOING THINGS SHE WISHES SHE COULD DO, "IT'S A VICIOUS CYCLE". HAS NOT GONE OUT OF ROOM THIS SHIFT. CALL LIGHT IN REACH. WCTM.
[2019-10-24 08:29] LABS: Hematocrit 32.4 % (33.0-51.0); Hemoglobin 10.3 g/dL (11.5-16.0); Mean Corpuscular HGB 30.7 pg (26.0-34.0); Mean Corpuscular HGB Conc 31.8 g/dL (31.5-36.5); Mean Corpuscular Volume 97 fL (80-100); Mean Platelet Volume 8.9 fL (9.1-12.4); Platelet Count 511 K/mm3 (150-400); RDW Coefficient Variation 13.3 % (11.7-14.2); RDW Standard Deviation 47.1 fL (35.1-46.3); Red Blood Cell Count 3.35 M/mm3 (3.80-5.20); White Blood Cell Count 5.92 K/mm3 (4.00-11.30)
[2019-10-24 08:56] LABS: Anion Gap 7 mmol/L (6-16); Blood Urea Nitrogen 14 mg/dL (8-24); CO2, Blood 27 mmol/L (21-32); Calcium, Blood 8.6 mg/dL (8.5-10.1); Chloride, Blood 107 mmol/L (98-108); Creatinine, Blood 0.67 mg/dL (0.40-1.00); Glomerular Filtration Rate >60 (60-); Glucose, Blood 101 mg/dL (70-99); Phosphorus, Blood 3.5 mg/dL (2.5-4.9); Potassium, Blood 4.1 mmol/L (3.5-5.5); Sodium, Blood 141 mmol/L (136-145)
--- NOTE | 2019-10-24 12:35 | NUR ---
DR PENA IN TO SEE PT THIS AM. DISCUSS W HER POSSIBLE D/C HOME TODAY W OUTPT ANTIBX TX. STATE [employer] WILL ASSIST IN MAKING ARRANGEMENTS FOR APPTS W [facility] & TRANSPORTATION ISSUES. PT IS PLEASANT/COOPERATIVE. STATE FEELS READY FOR D/C, NO PAIN/DISCOMFORT @ THIS TIME. DR MARIA ORDERS. CREDIT PRODUCT ANALYST STATE D/C AFTER 1300 VANCO GIVEN. LAB IN FOR TROUGH, WAITING RESULTS.
[2019-10-24] MEDS ORDERED: ACET325 PO (12:42)
[2019-10-24] MEDS ORDERED: GABA300 PO (12:42)
[2019-10-24] MEDS ORDERED: DIAZ5 PO (12:42)
[2019-10-24] MEDS ORDERED: IBUP600 PO (12:54)
[2019-10-24] MEDS ORDERED: Vsl#3 Capsule1 EACH (12:56)
[2019-10-24] MEDS ORDERED: MONISTAT 7 (12:58)
[2019-10-24] MEDS ORDERED: K-Phos Origina500 MG PO (13:00)
[2019-10-24] MEDS ORDERED: TRAM50 PO (13:02)
[2019-10-24] MEDS ORDERED: CLIN300 PO (13:04)
[2019-10-24] MEDS ORDERED: CUBICIN500 MG (13:06)
[2019-10-24 13:20] LABS: Vancomycin, Trough 19.3 ug/mL (5.0-10.0)
--- NOTE | 2019-10-24 16:31 | NUR ---
DISCHARGE IVPB VANCO COMPLETE. PG RUE D/C INTACT. D/C INSTRUCT REVIEWED W PT, EMPAHSIS ON TRANSPORTATION ARRANGEMENTS FOR DAILY IV ANTIBX @ [facility], F/U APPTS & POSSIBLE DRUG REHAB. ORDERS FAXED TO [facility]. PT STATE AUNT WILL BE IN FOR TRANSPORT HOME. SHE IS PLEASANT/APPRECIATIVE. [employer] [place] STATE WILL ARRANGE TRANSPORTATION IF PT'S AUNT UNABLE, PT NOTIFIED.
--- NOTE | 2019-10-24 17:23 | NUR ---
PT STATE FRIEND IS WAITING @ 2ND FLOOR PT ENTRANCE TO TAKE HER TO PHARMACY & HOME. W/C ESCORT FROM HOSP PROVIDED.
== END 2019-10-24 17:11 | disposition home or self-care (01) | DRG 299 ==
LOC: ER 00:52 → MEDS 05:53
PROVIDERS: Emergency Medicine; Hospitalist; Internal Medicine; Internal Medicine Infectious Disease; Pharmacist; ADMIT Family Medicine
PROC: 0H9GXZX Drainage of Left Hand Skin, External Approach, Diagnostic (ICD-10-PCS; principal; 2019-10-12)
PROC: 0H9FXZX Drainage of Right Hand Skin, External Approach, Diagnostic (ICD-10-PCS; 2019-10-12)
DX: I76 Septic arterial embolism (principal); A41.02 Sepsis due to Methicillin resistant Staphylococcus aureus; I26.99 Other pulmonary embolism without acute cor pulmonale; R65.11 Systemic inflammatory response syndrome (SIRS) of non-infectious origin with acute organ dysfunction; M46.26 Osteomyelitis of vertebra, lumbar region; L02.512 Cutaneous abscess of left hand; L02.511 Cutaneous abscess of right hand; M00.9 Pyogenic arthritis, unspecified; F17.210 Nicotine dependence, cigarettes, uncomplicated; D69.6 Thrombocytopenia, unspecified; F19.90 Other psychoactive substance use, unspecified, uncomplicated
CPT/HCPCS: 36415; 71046; 71260; 72158; 74176; 80048; 80053; 80069; 80202; 81001; 81025; 82565; 83605; 83690; 85025; 85027; 85651; 86140; 86317; 86704; 86708; 86803; 87040; 87077; 87086; 87147; 87186; 87340; 87389; 93005; 93010; 93306; 96361; 96365-59; 96375-59; 96376-59; 99285-25; A9270; A9270-GY; A9577; C1751; G0480; J1170; J1630; J1650; J1885; J1956; J3370; J7030; J7050; J7120; Q9967

== ENCOUNTER 2019-10-25 20:20 | Day surgery (SDC) | payer OTHER ==
[~2019-10-25 20:20] MED LIST changes: +ACET325 PO; +CLIN300 PO; +CUBICIN500 MG; +DIAZ5 PO; +GABA300 PO; +IBUP600 PO; +K-Phos Origina500 MG PO; +MONISTAT 7; +TRAM50 PO; +Vsl#3 Capsule1 EACH
== END 2019-10-25 23:59 | disposition home or self-care (01) ==
LOC: ATC 20:20
DX: A41.02 Sepsis due to Methicillin resistant Staphylococcus aureus (principal); I76 Septic arterial embolism; I26.90 Septic pulmonary embolism without acute cor pulmonale; I74.8 Embolism and thrombosis of other arteries; M46.36 Infection of intervertebral disc (pyogenic), lumbar region; L02.511 Cutaneous abscess of right hand; M60.08 Infective myositis, other site; Z79.2 Long term (current) use of antibiotics; Z79.899 Other long term (current) drug therapy; Z88.1 Allergy status to other antibiotic agents; Z88.8 Allergy status to other drugs, medicaments and biological substances
CPT/HCPCS: 96365; J0878

== ENCOUNTER 2019-10-26 00:10 | Day surgery (SDC) | payer OTHER ==
--- NOTE | 2019-10-26 14:42 | NUR ---
PT SENT TO ER: THIS RN WENT TO GET PT TO INFUSE DAPTO AND PT STOPS IN HALLWAY TO SHOW THIS RN HER RASH. RASH APPEARS BILATERALLY ON LEGS, MORE SEVERE ON LEFT CALF/LEG, PT STATES IT APPEARED AFTER THE ANTIBIOTIC LAST EVENING. PT WAS ADVISED TO GO TO ER SINCE HER CURRENT DIAGNOSES/CONDITION. PT AGREES AND REPORT GIVEN TO RAFFY CHAPA IN ER AT 1440
== END 2019-10-26 23:25 | disposition home or self-care (01) ==
LOC: ATC 00:10
DX: A41.02 Sepsis due to Methicillin resistant Staphylococcus aureus (principal); I76 Septic arterial embolism; I26.90 Septic pulmonary embolism without acute cor pulmonale; I74.8 Embolism and thrombosis of other arteries; M46.36 Infection of intervertebral disc (pyogenic), lumbar region; L02.511 Cutaneous abscess of right hand; M60.08 Infective myositis, other site; Z79.2 Long term (current) use of antibiotics; Z79.899 Other long term (current) drug therapy; Z88.1 Allergy status to other antibiotic agents; Z88.8 Allergy status to other drugs, medicaments and biological substances
CPT/HCPCS: J0878

== ENCOUNTER 2019-10-26 17:03 | Observation (INO) | payer OTHER ==
[~2019-10-26] VITALS: Ht 162.6 cm; Wt 99.8 kg
[2019-10-26 20:04] LABS: BASOPHILS ABSOLUTE AUTO 0.07 K/mm3 (0.00-0.23); BASOPHILS PERCENT AUTO 1 % (0-2); EOSINOPHILS ABSOLUTE AUTO 0.17 K/mm3 (0.00-0.68); EOSINOPHILS PERCENT AUTO 3 % (0-6); Hematocrit 31.5 % (33.0-51.0); Hemoglobin 10.1 g/dL (11.5-16.0); IMMATURE GRAN ABSOLUTE AUTO 0.02 K/mm3 (0.00-0.10); IMMATURE GRAN PERCENT AUTO 0 % (0-1); LYMPHOCYTES ABSOLUTE AUTO 2.43 K/mm3 (0.84-5.20); LYMPHOCYTES PERCENT AUTO 40 % (21-46); MONOCYTES ABSOLUTE AUTO 0.57 K/mm3 (0.16-1.47); MONOCYTES PERCENT AUTO 9 % (4-13); Mean Corpuscular HGB 31.8 pg (26.0-34.0); Mean Corpuscular HGB Conc 32.1 g/dL (31.5-36.5); Mean Corpuscular Volume 99 fL (80-100); Mean Platelet Volume 8.6 fL (9.1-12.4); NEUTROPHILS ABSOLUTE AUTO 2.79 K/mm3 (1.96-9.15); NEUTROPHILS PERCENT AUTO 46 % (41-73); Platelet Count 453 K/mm3 (150-400); RDW Coefficient Variation 13.8 % (11.7-14.2); RDW Standard Deviation 49.6 fL (35.1-46.3); Red Blood Cell Count 3.18 M/mm3 (3.80-5.20); White Blood Cell Count 6.05 K/mm3 (4.00-11.30)
[2019-10-26 20:21] LABS: International Normalized Ratio 1.1; Prothrombin Time Results 11.7 Sec (9.7-11.5)
[2019-10-26 20:26] LABS: Source, Urine Catheter
[2019-10-26 20:27] LABS: Alanine Aminotransfer (ALT/SGP 42 U/L (12-78); Albumin, Blood 2.2 g/dL (3.4-5.0); Albumin/Globulin Ratio 0.4 (0.8-1.8); Alk Phos 146 U/L (50-136); Anion Gap 7 mmol/L (6-16); Aspartate Aminotrans (AST/SGOT 54 U/L (12-37); Bilirubin, Total 0.3 mg/dL (0.1-1.0); Blood Urea Nitrogen 16 mg/dL (8-24); Bun/Creatinine Ratio 20.8 (12.0-20.0); CO2, Blood 25 mmol/L (21-32); Calcium, Blood 8.8 mg/dL (8.5-10.1); Chloride, Blood 104 mmol/L (98-108); Creatinine, Blood 0.77 mg/dL (0.40-1.00); Globulin, Blood 5.8 g/dL (2.2-4.0); Glomerular Filtration Rate >60 (60-); Glucose, Blood 104 mg/dL (70-99); Potassium, Blood 3.9 mmol/L (3.5-5.5); Sodium, Blood 136 mmol/L (136-145)
[2019-10-26 20:32] LABS: Bilirubin, Urine Neg (Neg); Blood, Urine Neg (Neg); Glucose Qualitative, Urine Neg (Neg); Ketones, Urine Neg (Neg); Leukocyte Esterase, Urine 1+ (Neg); Nitrite, Urine Neg (Neg); Protein, Urine Neg (Neg); Specific Gravity, Urine 1.025 (1.003-1.022); Urobilinogen, Urine NORM (Normal)
[2019-10-26 20:40] LABS: Appearance, Urine Clear (Clear); Bacteria Few /hpf; Color, Urine Yellow (P-Yellow); Red Blood Cells, Urine Not Seen /hpf (0-2); Squamous Epithelial Cells Few /hpf (Few); White Blood Cells, Urine 0-2 /hpf (0-5)
--- NOTE | 2019-10-27 06:07 | NUR ---
SHIFT SUMMARY RECIEVED REPORT FROM SIMÓN CHAPA, ED. ARRIVED TO MEDICAL FLOOR @ 0040. NO ASSISTANCE REQUIRED FOR TRANSFER. A/O, ABLE TO MAKE NEEDS KNOWN. COOPERATIVE WITH CARE. CALLS AND ANSWERS QUESTIONS APPROPRIATELY. C/O PAIN/DISCOMFORT X1; MEDICATED PER EMAR. VSS. NO ACUTE CHANGES NOTED. BED IN LOWEST POSITION. CALL LIGHT AND BELONGINGS WITHIN REACH. WCTM. REPORT TO ONCURBANO RN.
--- NOTE | 2019-10-27 09:50 | NUR ---
SPOKE TO PHARMACY- PT RECIEVED IV VANCO ON ADMIT AT 0144 ORDERED Q12 HOUR. PER MANUEL GRAJEDA TO GIVE DOSE OF VANCO AT THIS TIME.
--- NOTE | 2019-10-27 20:01 | NUR ---
SHIFT SUMMARY- BEDSIDE REPORT COMPLETED WITH NIGHT RN. PT MEDICATED WITH OXY AT 1800 ORDERED. MED IS SCHEDULED FOR Q6 SCHEDULED TO PREVENT WITHDRAWLS FROM PT RECREATIONAL DRUG HABBITS. PT ON IV ABX Q12 HOUR. PT NOT TO GO OUTSIDE OR HAVE VISITORS D/T HER PREVIOUS Hx OF SELF MEDICATING WHILE IN THE HOSPITAL.
--- NOTE | 2019-10-27 21:44 | NUR ---
2043 PT LYING IN BED, PT DENIES ANY DISCOMFORT AT THIS TIME. PT HAS A TEMP OF 100.1, COVERS WERE REMOVED AND TEMP IN ROOM TURNED DOWN. WILL ASLO GIVE IBUPROFEN AND RECHECK. RESP WERE 28. NO OTHER APPARENT SIGNS OF DISTRESS. CALL LIGHT IS IN REACH.
--- NOTE | 2019-10-27 21:46 | NUR ---
PT LYING IN BED, IV DC'D AND RESTARTED USING US. PT TOLERATED WELL. TEMP IS NOW 100.8, RESP 24. TURNED TEMP IN ROOM ALL THE WAY DOWN, APPLIED ICE PACK TO BACK OF PT'S NECK. WILL RE EVAL FOR EFFECT. PT REPORTED NAUSEA, GAVE ZOFRAN, WILL RE EVAL FOR EFFECT.
--- NOTE | 2019-10-27 22:47 | NUR ---
PT'S TEMP IS NOW 98.2.
--- NOTE | 2019-10-27 23:35 | NUR ---
PT LYING IN BED, WAKES EASILY TO VERBAL STIMULI. ADMINISTERED ROXICODONE THAT IS SCHEDULED. PT DENIES ANY DISCOMFORT OR NEED FOR ANYTHING AT THIS TIME. NO APPARENT SIGNS OF DISTRESS. CALL LIGHT IS IN REACH.
--- NOTE | 2019-10-28 01:39 | NUR ---
PT LYING IN BED, EYES CLOSED, APPEARS TO BE RESTING. BREATHING IS EVEN, UNLABORED. NO APPARENT SIGNS OF DISTRESS. CALL LIGHT IS IN REACH.
--- NOTE | 2019-10-28 02:43 | NUR ---
PT IS AAO X 4, INDEPENDANT. ON RA. REPORTED NAUSEA X 1, GOT ZOFRAN. DENIED PAIN BUT HAS SCHEDULED ROXICODONE TO HELP PREVENT WITHDRAWALS. PT HAS HX OF HEROIN USE.
--- NOTE | 2019-10-28 04:20 | NUR ---
PT LYING IN BED, EYES CLOSED, APPEARS TO BE RESTING. BREATHING IS EVEN, UNLABORED. NO APPARENT SIGNS OF DISTRESS. CALL LIGHT IS IN REACH.
--- NOTE | 2019-10-28 05:22 | NUR ---
PT LYING IN BED, AWAKE, DENIES ANY DISCOMFORT OR NEED FOR ANYTHING AT THIS TIME. NO APPARENT SIGNS OF DISTRESS. CALL LIGHT IS IN REACH. NO OTHER CHANGES THIS SHIFT.
[2019-10-28 08:51] LABS: BASOPHILS ABSOLUTE AUTO 0.04 K/mm3 (0.00-0.23); BASOPHILS PERCENT AUTO 1 % (0-2); EOSINOPHILS ABSOLUTE AUTO 0.14 K/mm3 (0.00-0.68); EOSINOPHILS PERCENT AUTO 3 % (0-6); Hematocrit 36.7 % (33.0-51.0); Hemoglobin 11.9 g/dL (11.5-16.0); IMMATURE GRAN ABSOLUTE AUTO 0.01 K/mm3 (0.00-0.10); IMMATURE GRAN PERCENT AUTO 0 % (0-1); LYMPHOCYTES ABSOLUTE AUTO 1.36 K/mm3 (0.84-5.20); LYMPHOCYTES PERCENT AUTO 30 % (21-46); MONOCYTES ABSOLUTE AUTO 0.43 K/mm3 (0.16-1.47); MONOCYTES PERCENT AUTO 9 % (4-13); Mean Corpuscular HGB 30.8 pg (26.0-34.0); Mean Corpuscular HGB Conc 32.4 g/dL (31.5-36.5); Mean Platelet Volume 8.5 fL (9.1-12.4); NEUTROPHILS ABSOLUTE AUTO 2.62 K/mm3 (1.96-9.15); NEUTROPHILS PERCENT AUTO 57 % (41-73); Platelet Count 483 K/mm3 (150-400); RDW Coefficient Variation 13.3 % (11.7-14.2); Red Blood Cell Count 3.86 M/mm3 (3.80-5.20)
[2019-10-28 08:59] LABS: Mean Corpuscular Volume 95 fL (80-100)
[2019-10-28 09:17] LABS: Alanine Aminotransfer (ALT/SGP 43 U/L (12-78); Albumin, Blood 2.5 g/dL (3.4-5.0); Albumin/Globulin Ratio 0.4 (0.8-1.8); Alk Phos 159 U/L (50-136); Anion Gap 6 mmol/L (6-16); Aspartate Aminotrans (AST/SGOT 41 U/L (12-37); Bilirubin, Total 0.4 mg/dL (0.1-1.0); Blood Urea Nitrogen 10 mg/dL (8-24); Bun/Creatinine Ratio 13.5 (12.0-20.0); CO2, Blood 26 mmol/L (21-32); Calcium, Blood 9.2 mg/dL (8.5-10.1); Chloride, Blood 106 mmol/L (98-108); Creatinine, Blood 0.74 mg/dL (0.40-1.00); Globulin, Blood 6.4 g/dL (2.2-4.0); Glomerular Filtration Rate >60 (60-); Glucose, Blood 123 mg/dL (70-99); Potassium, Blood 3.9 mmol/L (3.5-5.5); Sodium, Blood 138 mmol/L (136-145); Total Protein, Blood 8.9 g/dL (6.4-8.2)
[2019-10-28 09:19] LABS: Vancomycin, Trough 24.1 ug/mL (5.0-10.0)
--- NOTE | 2019-10-28 18:10 | NUR ---
SHIFT SUMMARY PT HAS BEEN TEARFUL ON AND OFF THROUGH DAY. SLEEPING FRQUENTLY WELL. HAD 1 LOOSE STOOL THIS MORNING BUT NONE SINCE. DECLINING LIDODERM PATCHES REPORTING THEY ARE TOO SLIMEY AND THEY DONE'T WORK. WHEN DISCUSSED WITH HER IBUPROFEN SHE REPORTED BEING CONTENT WITH USING THE OXYCODONE SCHEDULED. NO FEVERS TODAY. PT DENIES ITCHING OR IRRITATION DUE TO RASH.
[2019-10-29 04:49] LABS: BASOPHILS ABSOLUTE AUTO 0.04 K/mm3 (0.00-0.23); BASOPHILS PERCENT AUTO 1 % (0-2); EOSINOPHILS ABSOLUTE AUTO 0.23 K/mm3 (0.00-0.68); EOSINOPHILS PERCENT AUTO 4 % (0-6); Hematocrit 32.8 % (33.0-51.0); Hemoglobin 10.4 g/dL (11.5-16.0); IMMATURE GRAN ABSOLUTE AUTO 0.01 K/mm3 (0.00-0.10); IMMATURE GRAN PERCENT AUTO 0 % (0-1); LYMPHOCYTES PERCENT AUTO 37 % (21-46); MONOCYTES ABSOLUTE AUTO 0.63 K/mm3 (0.16-1.47); MONOCYTES PERCENT AUTO 10 % (4-13); Mean Corpuscular HGB 30.4 pg (26.0-34.0); Mean Corpuscular HGB Conc 31.7 g/dL (31.5-36.5); Mean Corpuscular Volume 96 fL (80-100); Mean Platelet Volume 8.5 fL (9.1-12.4); NEUTROPHILS ABSOLUTE AUTO 2.97 K/mm3 (1.96-9.15); NEUTROPHILS PERCENT AUTO 48 % (41-73); Platelet Count 442 K/mm3 (150-400); RDW Coefficient Variation 13.8 % (11.7-14.2); RDW Standard Deviation 47.8 fL (35.1-46.3); Red Blood Cell Count 3.42 M/mm3 (3.80-5.20); White Blood Cell Count 6.18 K/mm3 (4.00-11.30)
[2019-10-29 05:15] LABS: Anion Gap 8 mmol/L (6-16); Blood Urea Nitrogen 11 mg/dL (8-24); Bun/Creatinine Ratio 14.6 (12.0-20.0); CO2, Blood 25 mmol/L (21-32); Chloride, Blood 105 mmol/L (98-108); Creatinine, Blood 0.76 mg/dL (0.40-1.00); Glomerular Filtration Rate >60 (60-); Glucose, Blood 118 mg/dL (70-99); Potassium, Blood 3.6 mmol/L (3.5-5.5); Sodium, Blood 138 mmol/L (136-145)
--- NOTE | 2019-10-29 06:00 | NUR ---
T/F AND SUMMARY: PT T/F'D TO ROOM 339 AT 0123 W/FAMILY AT BEDSIDE. HE WAS ABLE TO AMBULATE FROM GURNEY TO BED W/O ANY OBSERVABLE DEFICITS. PT ADMITTED FOR OBS D/T POSSIBLE CVA. BILAT VALVE SETTER/PEDAL STRENGTH INTACT, NO ABNORMALITIES IN GAIT OBSERVED, FANY AND PT SHOWED SHOWED NO EVIDENCE OF FACIAL DROOP. ANY SLURRED SPEECH PT EXPERIENCED HAD RESOLVED PRIOR TO ADMISSION TO UNIT. NEUROS HAVE REMAINED STABLE SINCE. HE DENIES PAIN AND DISCOMFORT AND TOOK ALL HOME MEDS PRIOR TO ARRIVAL TO ER. IVF WERE COMMENCED PER EMAR AND PT ALREADY HAD FLU VAC THIS SEASON. HE WAS INSTRUCTED TO CALL FOR ASSIST AND IS FAMILIAR W/ CALL SYSTEM. PT [facility] 6-8 TIMES/DAY FOR RETENTION/INABILITY TO VOID. REED WAS PLACED IN ER AND REMAINS PATENT/DRAINING. MEDS WERE RECONCILLED. PT HAS KNOWN AFIB AND WAS AFIB AT 80'S-90'S BPM PER TELEMETRY. VSS/AFEBRILE. NO ACUTE CHANGES. WCTM AND REPORT TO DAY RN.
--- NOTE | 2019-10-29 06:37 | NUR ---
SUMMARY: A/OX4, INDEPENDENT AND SPECIFIES NEEDS. SCHEDULED PAIN MEDS RECIEVED FOR ADEQUATE PAIN CONTROL. PT SL BETWEEIN IV ABX'S PROVIDED T/O NOCTE. RASH PERSISTS AND SOME ITCHING EXPRESSED BUT LOTION APPLIED FOR ADEQUATE RELIEF. NO ACUTE CHANGES. VSS/AFEBRILE. PT HAS DENIED NEEDS AND IS AWARE OF NO VISITORS. WCTM AND REPORT TO DAY RN.
--- NOTE | 2019-10-29 18:34 | NUR ---
SHIFT SUMMARY PT IN ROOM NAPPING MOST OF DAY. DID GET UP AND AMBULATE IN HALLWAY TO HELP STRETCH HER BACK OUT. K PAD PLACED IN ROOM FOR PT COMFORT TO BACK WELL WHICH PT REPORTED HELPS HER BACK DISCOMFORT. SHOWER TAKEN THIS EVENING. WAS UPSET ABOUT DR. SEGURA NOT ARRIVING TOMORROW BUT SHE WAS LESS TEARFUL TODAY THAN YESTERDAY.
[2019-10-30 04:57] LABS: BASOPHILS ABSOLUTE AUTO 0.04 K/mm3 (0.00-0.23); BASOPHILS PERCENT AUTO 1 % (0-2); EOSINOPHILS ABSOLUTE AUTO 0.26 K/mm3 (0.00-0.68); EOSINOPHILS PERCENT AUTO 4 % (0-6); Hemoglobin 10.6 g/dL (11.5-16.0); IMMATURE GRAN ABSOLUTE AUTO 0.01 K/mm3 (0.00-0.10); IMMATURE GRAN PERCENT AUTO 0 % (0-1); LYMPHOCYTES ABSOLUTE AUTO 2.36 K/mm3 (0.84-5.20); LYMPHOCYTES PERCENT AUTO 40 % (21-46); MONOCYTES ABSOLUTE AUTO 0.75 K/mm3 (0.16-1.47); MONOCYTES PERCENT AUTO 13 % (4-13); Mean Corpuscular HGB Conc 32.1 g/dL (31.5-36.5); Mean Corpuscular Volume 97 fL (80-100); Mean Platelet Volume 8.6 fL (9.1-12.4); NEUTROPHILS ABSOLUTE AUTO 2.55 K/mm3 (1.96-9.15); NEUTROPHILS PERCENT AUTO 43 % (41-73); Platelet Count 443 K/mm3 (150-400); RDW Coefficient Variation 14.1 % (11.7-14.2); RDW Standard Deviation 49.5 fL (35.1-46.3); Red Blood Cell Count 3.42 M/mm3 (3.80-5.20); White Blood Cell Count 5.97 K/mm3 (4.00-11.30)
--- NOTE | 2019-10-30 05:15 | NUR ---
SUMMARY: A/OX4, INDEPENDENT IN ROOM AND COOPERATIVE W/CARE. SCHEDULED OXYCODONE IS PROVIDING EFFECTIVE CHRONIC BACK PAIN RELIEF. IV ABX RECIEVED FOR STAPH INFECTION. PT HAS HEALED/SCARRED SITES TO HANDS/ARMS FROM PREVIOUSLY LANCED ABSESSES DURING PRIOR HOSPITALISATION. PT COMPLIANT W/NO VISITORS RX D/T KNOWN IV DRUG USE. CX PENDING, UNAVAILABLE UNTIL 11/01/19. NO ACUTE CHANGES, VSS/AFEBRILE. WCTM AND REPORT TO DAY RN.
[2019-10-30 05:16] LABS: Vancomycin, Trough 17.8 ug/mL (5.0-10.0)
--- NOTE | 2019-10-30 18:50 | NUR ---
PATIENT IS ALERT AND ORIENTED AND COOPERATIVE WITH CARE. ENT CONSULT HAS BEEN PLACED WITH DR. SRIVASTAVA WHO WILL COME BY TOMORROW. PATIENT MAKES HER NEEDS KNOWN. SHE IS NOT TO LEAVE HER HOSPITAL ROOM BECAUSE OF HER HISTORY OF SUBSTANCE ABUSE WHILE AT THE HOSPITAL. WILL CONTINUE TO MONITOR.
--- NOTE | 2019-10-31 03:42 | NUR ---
10/31/19 0340 PT SLEEPING WITHOUT DISTRESS. VITALS STABLE. TAKING ORAL INTAKE WELL. UNEVENTFUL NIGHT. VOIDING QS OF CLEAR YELLOW URINE.
[2019-10-31 05:24] LABS: BASOPHILS ABSOLUTE AUTO 0.04 K/mm3 (0.00-0.23); BASOPHILS PERCENT AUTO 1 % (0-2); EOSINOPHILS ABSOLUTE AUTO 0.25 K/mm3 (0.00-0.68); EOSINOPHILS PERCENT AUTO 5 % (0-6); Hematocrit 33.6 % (33.0-51.0); Hemoglobin 11.1 g/dL (11.5-16.0); IMMATURE GRAN PERCENT AUTO 0 % (0-1); LYMPHOCYTES ABSOLUTE AUTO 2.03 K/mm3 (0.84-5.20); LYMPHOCYTES PERCENT AUTO 40 % (21-46); MONOCYTES ABSOLUTE AUTO 0.58 K/mm3 (0.16-1.47); MONOCYTES PERCENT AUTO 12 % (4-13); Mean Corpuscular HGB 30.8 pg (26.0-34.0); Mean Platelet Volume 8.6 fL (9.1-12.4); NEUTROPHILS ABSOLUTE AUTO 2.14 K/mm3 (1.96-9.15); NEUTROPHILS PERCENT AUTO 42 % (41-73); Platelet Count 414 K/mm3 (150-400); RDW Coefficient Variation 13.2 % (11.7-14.2); RDW Standard Deviation 44.8 fL (35.1-46.3); White Blood Cell Count 5.04 K/mm3 (4.00-11.30)
[2019-10-31 05:25] LABS: Mean Corpuscular Volume 93 fL (80-100)
--- NOTE | 2019-10-31 16:11 | NUR ---
1530 PT STATED SHE HAD TO LEAVE TO TAKE CARE OF PERSONAL ISSUES AT HOME. DOCTOR ISTRATE NOTIFED AND STATED HE WOULD NOT DISCHARGE HER. SHE SAID SHE WOULD GO AMA AND RETURN TO THE ER TO BE READMITTED LATER ON. THIS NURSE HAD HER SIGN AN AMA FORM. THIS NURSE EDUCATED HER ON THE DANGERS OF CHECKING OUT AMA BUT SHE STATED SHE NEEDED TO GET HOME AND TAKE CARE OF HER DOGS. SHE PROMISED SHE WOULD RETURN THROUGH THE ER. THIS NURSE STRONGLY COUNSELLED HER TO STAY AWAY FROM ANY RECREATIONAL SUBSTANCES THEY WOULD NOT BENEFIT HER CONDITION. IV REMOVED, PATIENT SHOWERED AND DRESSED AND WALKED OUT TO RIDE.
== END 2019-10-31 16:03 | disposition left against medical advice (07) ==
LOC: ER 17:03 → MEDS 17:04
PROVIDERS: Family Medicine; Nurse Practitioner Acute Care; Physician Assistant; ADMIT Internal Medicine
DX: M00.08 Staphylococcal arthritis, vertebrae (principal); B95.62 Methicillin resistant Staphylococcus aureus infection as the cause of diseases classified elsewhere; M46.26 Osteomyelitis of vertebra, lumbar region; A18.01 Tuberculosis of spine; L25.8 Unspecified contact dermatitis due to other agents; T37.1X5A Adverse effect of antimycobacterial drugs, initial encounter; F11.10 Opioid abuse, uncomplicated; N39.0 Urinary tract infection, site not specified; B96.20 Unspecified Escherichia coli [E. coli] as the cause of diseases classified elsewhere; M27.2 Inflammatory conditions of jaws; Z88.1 Allergy status to other antibiotic agents; Z88.8 Allergy status to other drugs, medicaments and biological substances; Z79.1 Long term (current) use of non-steroidal anti-inflammatories (NSAID); Z79.899 Other long term (current) drug therapy; Z53.29 Procedure and treatment not carried out because of patient's decision for other reasons; X58.XXXA Exposure to other specified factors, initial encounter
CPT/HCPCS: 36415; 70487; 80048; 80053; 80202; 81001; 82785; 83605; 85025; 85610; 85651; 85730; 86140; 87040; 87077; 87086; 87186; 93005; 93010; 96365; 96366; 96375; 96376; 99285-25; C9113; G0378; J2405; J3370; J7050; Q9967

== ENCOUNTER 2019-10-27 02:16 | Day surgery (SDC) | payer OTHER | END 2019-10-27 23:06 | disposition home or self-care (01) | LOC: ATC 02:16 | DX: A41.02 Sepsis due to Methicillin resistant Staphylococcus aureus (principal); I76 Septic arterial embolism; I26.90 Septic pulmonary embolism without acute cor pulmonale; I74.8 Embolism and thrombosis of other arteries; M46.36 Infection of intervertebral disc (pyogenic), lumbar region; L02.511 Cutaneous abscess of right hand; M60.08 Infective myositis, other site; Z79.2 Long term (current) use of antibiotics; Z79.899 Other long term (current) drug therapy; Z88.1 Allergy status to other antibiotic agents; Z88.8 Allergy status to other drugs, medicaments and biological substances ==

== ENCOUNTER 2019-10-28 02:39 | Day surgery (SDC) | payer OTHER | END 2019-10-28 22:39 | disposition home or self-care (01) | LOC: ATC 02:39 | DX: A41.02 Sepsis due to Methicillin resistant Staphylococcus aureus (principal); I76 Septic arterial embolism; I26.90 Septic pulmonary embolism without acute cor pulmonale; I74.8 Embolism and thrombosis of other arteries; M46.36 Infection of intervertebral disc (pyogenic), lumbar region; L02.511 Cutaneous abscess of right hand; M60.08 Infective myositis, other site; Z79.2 Long term (current) use of antibiotics; Z79.1 Long term (current) use of non-steroidal anti-inflammatories (NSAID); Z79.899 Other long term (current) drug therapy; Z88.1 Allergy status to other antibiotic agents; Z88.8 Allergy status to other drugs, medicaments and biological substances ==

== ENCOUNTER 2019-10-29 00:37 | Day surgery (SDC) | payer OTHER | END 2019-10-29 22:37 | disposition home or self-care (01) | LOC: ATC 00:37 | DX: A41.02 Sepsis due to Methicillin resistant Staphylococcus aureus (principal); I76 Septic arterial embolism; I26.90 Septic pulmonary embolism without acute cor pulmonale; I74.8 Embolism and thrombosis of other arteries; M46.36 Infection of intervertebral disc (pyogenic), lumbar region; L02.511 Cutaneous abscess of right hand; M60.08 Infective myositis, other site; Z79.2 Long term (current) use of antibiotics; Z79.1 Long term (current) use of non-steroidal anti-inflammatories (NSAID); Z79.899 Other long term (current) drug therapy; Z88.1 Allergy status to other antibiotic agents; Z88.8 Allergy status to other drugs, medicaments and biological substances ==

== ENCOUNTER 2019-10-31 00:12 | Day surgery (SDC) | payer OTHER | END 2019-10-31 22:46 | disposition home or self-care (01) | LOC: ATC 00:12 | DX: A41.02 Sepsis due to Methicillin resistant Staphylococcus aureus (principal); I76 Septic arterial embolism; I26.90 Septic pulmonary embolism without acute cor pulmonale; I74.8 Embolism and thrombosis of other arteries; Z79.2 Long term (current) use of antibiotics; Z79.899 Other long term (current) drug therapy; Z88.1 Allergy status to other antibiotic agents; Z88.8 Allergy status to other drugs, medicaments and biological substances ==

== ENCOUNTER 2020-10-01 19:25 | Emergency (ER) | payer OTHER ==
[~2020-10-01] VITALS: Ht 162.6 cm; Wt 86.2 kg
== END 2020-10-01 22:05 | disposition home or self-care (01) ==
LOC: ER 19:25
DX: S63.284A Dislocation of proximal interphalangeal joint of right ring finger, initial encounter (principal); S61.217A Laceration without foreign body of left little finger without damage to nail, initial encounter; F17.200 Nicotine dependence, unspecified, uncomplicated; Z88.1 Allergy status to other antibiotic agents; Z88.8 Allergy status to other drugs, medicaments and biological substances; W18.30XA Fall on same level, unspecified, initial encounter
CPT/HCPCS: 26770; 73130; 73140; 99283-25